=== PATIENT | male | born 1990 | race Caucasian/White ===

== ENCOUNTER 2016-10-07 09:11 | Inpatient (IN) | payer OTHER ==
[~2016-10-07] VITALS: Ht 177.8 cm; Wt 59.8 kg
--- NOTE | ~2016-10-07 | INDIVTXPL2 ---
"PATIENT: JEFFERY CARTER | | [facility] UNIT #: [id number] | [address] AGE/SEX: 26 M : [birth year] | [address] | [place] [address] ADMIT/REG DATE: 10/07/16 | ROOM: [facility] LOC: ADTC | ADTC | Individualized Treatment Plan DATE:10/24/16 Problem Statement/Issue Identified:I need to learn about relapse prevention to prevent relapse. Goal:I will lear how to prevent relapse Objectives/Activities to achieve goal: 1.I will complet the relapse prevention packet and share with my counselor what I learned. Due Date:10/31/16 Complete: Incomplete: 2.I will make a list of relapse triggers and make a relapse prevention plan and share with my counselor. Due Date:11/03/16 Complete: Incomplete: 3. I will be aware of any negative thinking or behaviors and share with my sponsor and others in the program and be open to them pointing out behaviors they see in me. Due Date:on going Complete: Incomplete: Client Signature Date Counselor Signaure: Date Outcome/Measurement of Progress Towards Goal: Counselor Signature: Date "
--- NOTE | ~2016-10-07 | INDIVTXPL2 ---
"PATIENT: JEFFERY CARTER | | [facility] UNIT #: [id number] | [address] AGE/SEX: 26 M : [birth year] | [address] | [place] [phone] ADMIT/REG DATE: 10/07/16 | ROOM: [facility] LOC: ADTC | ADTC | Individualized Treatment Plan DATE:10/15/16 Problem Statement/Issue Identified: My substance use has caused my family to worry and I have had legal problems Goal:I need to learn how to stay sober. Objectives/Activities to achieve goal: 1.I will complete the getting started packet and share with counselor and in group. Due Date:10/17/16 Complete: Incomplete: 2.I will complete step 1 and share with counselor and in group pages 10-11. Due Date:10/21/16 Complete: Incomplete: 3.I will participate in group by sharing assignments, relating and giving feedback. Due Date:11/04/16 Complete: Incomplete: Client Signature Date Counselor Signaure: Date Outcome/Measurement of Progress Towards Goal: Counselor Signature: Date "
--- NOTE | ~2016-10-07 | INDIVTXPL2 ---
"PATIENT: JEFFERY CARTER | | [facility] UNIT #: [id number] | [address] AGE/SEX: 26 M : [birth year] | [address] | [place] [address] ADMIT/REG DATE: 10/07/16 | ROOM: [facility] LOC: ADTC | ADTC | Individualized Treatment Plan DATE:10/18/16 Problem Statement/Issue Identified:I need to learn to identify negative thinking Goal:I will work on identifying my negative thinking so I can change it Objectives/Activities to achieve goal: 1.I will read the stiking thinking booklet and share what I learned with my counselor. Due Date:10/22/16 Complete: Incomplete: 2.I will share with my counselor when I fall into negative thinking or behaviors and share how I dealt with it. Due Date:11/04/16 Complete: Incomplete: Client Signature Date Counselor Signaure: Date Outcome/Measurement of Progress Towards Goal: Counselor Signature: Date "
--- NOTE | ~2016-10-07 | CLPRLASSUM ---
"PATIENT: JEFFERY CARTER | | [facility] UNIT #: [id number] | [address] AGE/SEX: 26 M : [birth year] | [address] | [place] [address] ADMIT/REG DATE: 10/07/16 | ROOM: [facility] LOC: ADTC | ADTC | Client Problem List/Assessment Summary Date: 10/15/16 Problems identified by the client: My alcohol use has caused problems with family,financial and legal. Problems identified by significant others:same Client's Strengths: good work ethics and cares about family Problem List:Code: O Client needs to become familiar with basics of recovery as he/she is new to treatment and Twelve Step Program. Code: T Client is experiencing family &/or significant other discord and distancing as a result of past alcohol &/or drug usage. Code: O Client has learned to deny or stuff feelings; needs to learn to identify and process feelings with safe people to acquire the necessary skills to maintain prison sobriety. Code Molina: T: to be addressed during course of treatment O: problem noted, expected to resolve itself with abstinence--specific tx plan not required R: problem noted, will be referred upon discharge PRIMARY COUNSELOR: Penny Strauss"
--- NOTE | ~2016-10-07 | TXPLANREV ---
"PATIENT: JEFFERY CARTER | | [facility] UNIT #: [id number] | [address] AGE/SEX: 26 M : [birth year] | [address] | [place] [phone] ADMIT/REG DATE: 10/07/16 | ROOM: [facility] LOC: ADTC | ADTC | Treatment Plan/Staffing Review Date: 10/31/16 Treatment plan was reviewed and determined appropriate as written: yes Treatment plan was reviewed and the following changes/addition/deletions are necessary: none Discharge plans were reviewed and determined appropriate as previously documented: client will do aftercare here at [facility] instead of [place] as previously planned. Discharge plans were reviewed and determined to be as follows: Client will see Parish for aftercare sessions and be in [facility] Friday night group. He will need to do 3 AA meetings a week and get a sponsor. Other pertinent issues discussed during this staffing review include:Client is doing well and is coleader. He remains possitive and is following through with all his responsibilities and assignments. Staff Present: Jil Byrd PRIMARY COUNSELOR:PARISH Cobb,L.A.DDonisCDonis Client Signature Counselor Signature Date Time "
--- NOTE | ~2016-10-07 | TXPLANREV ---
"PATIENT: JEFFERY CARTER | | [facility] UNIT #: [id number] | [address] AGE/SEX: 26 M : [birth year] | [address] | [place] [phone] ADMIT/REG DATE: 10/07/16 | ROOM: [facility] LOC: ADTC | ADTC | Treatment Plan/Staffing Review Date: 10/22/16 Treatment plan was reviewed and determined appropriate as written:will add new treatment plan Treatment plan was reviewed and the following changes/addition/deletions are necessary: will meet with client and see what he needs to work on Discharge plans were reviewed and determined appropriate as previously documented:client plans on going back home and doing his aftercare at [facility]. Discharge plans were reviewed and determined to be as follows: client will discharge 11/04/16 Other pertinent issues discussed during this staffing review include: client seems to be doing well and is opeing up more in group. His significant other had moved out and she suddenly moved back to their place so she plans on coming to family. Staff Present: Marielena Ragsdale PRIMARY COUNSELOR: PARISH Cobb,L.A.DDonisC. Client Signature Counselor Signature Date Time "
--- NOTE | ~2016-10-07 | RESCARESUM ---
"PATIENT: JEFFERY CARTER | | [facility] UNIT #: [id number] | [address] AGE/SEX: 26 M : 89 | [address] | [place] [phone] ADMIT/REG DATE: 10/07/16 | ROOM: [facility] LOC: ADTC | ADTC | Summary of Residential Care Primary Counselor: Parish BOLAND,[facility] Date of Admission: 10/07/16 Date of Discharge: 11/04/16 Referral Source: county attorney Primary Care Provider Prior to Admission:none Admitting Diagnosis: F10.20 alcohol use disorder severe Discharge Diagnosis: same Goals Achieved: Client completed the 28 day residential treatment program and assignments he completed were: how to get started, step one-three, relapse prevention, and stinking thinking. He completed family program with his foster mom and his significant other. He was put into the coleader role and did a good job with this. He appears to be serious about recovery and did a good job and seems to get along with staff and peers. Concerns are that his significant other had left him and now suddenly wants to move back in and she admits to him and this counselor that she is still smoking pot. Continued Obstacles to Sobriety/Relapse Issues:hanging out in using places,old using friends, relationship problems, using family, and issolating and not sharing feelings. Family Issues Addressed: Clients foster mom and significant other came to family. His sig. other had left him and now wants to move back in but admits to still be smoking pot. They shared feelings letters and both mom and significant other heard about ortiznon. Client also wrote feelings letters to his daughters. y Individual Therapy y Group Therapy y Educational Series on Substance Abuse y Parents/Significant Others Attended Family Program n Acute Medical Problems During the Course of Treatment n Transferred to Hospital During the Course of Treatment y Accepting of Substance Abuse Problem n non-accepting of Substance Abuse Problem n Required Psychological or Psychiatric Consultation During the Course of Treatment Completed AA Step #1-3 During This Level of Care Significant Incidences During Treatment: none Reason For Discharge: y Completed Residential TX Goals and Ready For Next Level of Care Left Tx Against Medical Advice/Treatment Goals Not Complete PATIENT: JEFFERY CARTER | | [facility] UNIT #: [id number] | [address] AGE/SEX: 26 M : [birth year] | [address] | [place] [address] ADMIT/REG DATE: 10/07/16 | ROOM: [facility] LOC: ADTC | ADTC | Summary of Residential Care Completed Residential Tx Goals But Refusing Continuing Care Recommendations Discharged Due to Noncompliance/Treatment Goals not Completed Discharged Earlier Than Planned Due to: Continuing Care Plan/Recommendations: Intensive Partial Care y Sponsor Partial Care y AA Meetings/NA Meetings y Outpatient Co-dependency Services [facility] / [facility] Marriage Counseling Other Specific Continuing Care Plan: Client will do his aftercare here at [facility]. He will attend [facility] group every Friday night and see [facility] for inidivual sessions. He will be required to attend AA/NA meetings weekly and have contact with a sponsor which he will need to get. He will be given assignments to complete. PRIMARY COUNSELOR: PARISH Cobb,L.A.D.C."
--- NOTE | ~2016-10-07 | INDIVTXPL2 ---
"PATIENT: JEFFERY CARTER | | [facility] UNIT #: [id number] | [address] AGE/SEX: 26 M : 89 | [address] | [place] [phone] ADMIT/REG DATE: 10/07/16 | ROOM: [facility] LOC: ADTC | ADTC | Individualized Treatment Plan DATE:10/24/16 Problem Statement/Issue Identified:My substance use has affected my life and my relationship with God. Goal:I will work on my relationship with God. Objectives/Activities to achieve goal: 1.I will complete step 2 and share with my counselor what I learned Due Date:11/03/16 Complete: Incomplete: 2.I will practice turning things over to God and share with my counselor and sponsor how this is going. Due Date:on going Complete: Incomplete: 3. I will work on praying more and share how this is going with counselor/sponsor. Due Date:on going Complete: Incomplete: Client Signature Date Counselor Signaure: Date Outcome/Measurement of Progress Towards Goal: Counselor Signature: Date "
--- NOTE | ~2016-10-07 | INDIVTXPL2 ---
"PATIENT: JEFFERY CARTER | | [facility] UNIT #: [id number] | [address] AGE/SEX: 26 M : [birth year] | [address] | [place] [address] ADMIT/REG DATE: 10/07/16 | ROOM: [facility] LOC: ADTC | ADTC | Individualized Treatment Plan DATE:10/24/16 Problem Statement/Issue Identified:I have struggled with dealing with my emotions Goal:I will learn how to deal with my emotions in a positive way Objectives/Activities to achieve goal: 1.I will read packet about emotions and share what I learned with my counselor Due Date:10/29/16 Complete: Incomplete: 2.I will practice sharing how I feel with counselor/sponsor and people in the program Due Date:on going Complete: Incomplete: Client Signature Date Counselor Signaure: Date Outcome/Measurement of Progress Towards Goal: Counselor Signature: Date "
--- NOTE | ~2016-10-07 | INDIVTXPL2 ---
"PATIENT: JEFFERY CARTER | | [facility] UNIT #: [id number] | [address] AGE/SEX: 26 M : 89 | [address] | [place] [phone] ADMIT/REG DATE: 10/07/16 | ROOM: [facility] LOC: ADTC | ADTC | Individualized Treatment Plan DATE:10/17/16 Problem Statement/Issue Identified:My substance use has affected my family relationships. Goal:I need to learn how to improve my family relationships Objectives/Activities to achieve goal: 1.I will attend family education/group with my mother and share what I learned with my counselor. Due Date:by 11/04/16 Complete: Incomplete: 2.I will write feelings letters as assigned and share them with my counselor before reading them to family. Due Date:by 11/04/16 Complete: Incomplete: 3. I will write a vent letter to my bio mom and read to counselor and/or in group to process my feelings. Due Date:10/22/16 Complete: Incomplete: Client Signature Date Counselor Signaure: Date Outcome/Measurement of Progress Towards Goal: Counselor Signature: Date "
--- NOTE | 2016-10-07 13:16 | NUR ---
ADMISSION NOTE Rights/Responsibilities: Copy given and explained to client. Signed and accepted by client. Client oriented to physical lay out of the ADTC unit, given Big Book and admission packet. A Zia was assigned. Alexander Bradley Client is a 26yr old single male. Brought to tx by [facility] staff where he has been for the past 7 days. Lives in [place], [place]. DOC, alcohol, last used 09/27/16, 6 pack daily. No allergies, no meds. Was searched no contraband found. Mother will participate in tx. Initial paperwork given and guidelines gone over. Doctor has been notified.
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
--- NOTE | 2016-10-07 16:00 | NUR ---
Recovery 101 1 hr/ Clients all were asked to share what they worked on in treatment or past treatments that really helped them and/or their experience with working an AA/NA program of recovery-what went well. This client was attentive.
--- NOTE | 2016-10-07 18:11 | NUR ---
Education: 1 Hour. Client attended "Adult Children of Alcoholics" lecture presented by staff.
--- NOTE | 2016-10-07 23:28 | NUR ---
tech note: Client played a game for recreation & attended onsite NA meeting. Client was checked into his room-not seen by the DR. Client gave his first intro. SE: Coming to treatment.
--- NOTE | 2016-10-08 04:32 | NUR ---
BED NOTE: Client was in bed, motionless with eyes closed all three bed checks.
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
--- NOTE | 2016-10-08 16:00 | NUR ---
Relapse Prevention, 1.0 hours, Client attended and actively participated in relapse prevention education which focused on internal and external triggers.
--- NOTE | 2016-10-08 16:36 | NUR ---
Tech Note: Client participated in Nutritional Services presentation and is working on Getting Started and the Big Book.
--- NOTE | 2016-10-08 22:42 | NUR ---
Education: 1 hour lecture given by counselor on co-dependency
--- NOTE | 2016-10-08 22:52 | NUR ---
Tech note: clients played catchphrase for rec, participated in guided meditation and attended AA meeting SE:AA
--- NOTE | 2016-10-09 04:37 | NUR ---
bed note: client was in bed with eyes closed and motionless at all bed checks.
--- NOTE | 2016-10-09 09:53 | NUR ---
Tech notes: Client is working on BB
--- NOTE | 2016-10-09 11:30 | NUR ---
GROUP 1.5 HRS. 1:12 Clients participated in orienting new peer to purpose and rules of group. Discussion included healthy coping skills to deal with stress and feelings. Peer processed from his step 1 assignment identifying how he betrayed his values in his addiction. This client was mostly quiet but appeared attentive.
--- NOTE | 2016-10-09 13:14 | NUR ---
Education note: Client attended educational speaker David Breaux
--- NOTE | 2016-10-09 15:43 | NUR ---
Family contact/ Clients foster mom called and said she had contacted the court and he does not have to go to court while in treatment. I told her we had been in contact with court also. She wants him to know she called and loves him. I told her I would be in touch after client gets going more in treatment.
--- NOTE | 2016-10-09 17:33 | NUR ---
SPIRITUAL EDUCATION 1 HR. Today we used music to invoke discussion, symbolize how it can be either positive spirituality or negative spirituality, and discussed the feelings. We used one song that depicted addiction, one that talked about recovery, and since we are close to Mother's Day, one that depicted addiction in parents and forgiveness.
--- NOTE | 2016-10-09 18:17 | NUR ---
Education: 1 Hour. Client attended "Boudaries" lecture given by staff.
--- NOTE | 2016-10-09 22:54 | NUR ---
Tech Note: Client played a game for rec, and attended The on unit N.A.Meeting. SE: All Day
--- NOTE | 2016-10-10 04:29 | NUR ---
Bed Note: Client was in bed with eyes closed and motionless at all bed checks.
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
--- NOTE | 2016-10-10 13:11 | NUR ---
FAMILY CONTACT/ discussed family and foster mom will come to family saturday 10/14 and 10/24.
--- NOTE | 2016-10-10 15:56 | NUR ---
step education 1 hr/ Focus was on step 3 of the 12 steps Made a decision to turn our will and lives over to God. Each person were given questions to answer on paper and then to share and discuss. This client participated.
--- NOTE | 2016-10-10 18:16 | NUR ---
Education 1HR: Clt watched video called "Predator part 1" by Selvin Pete with staff present.
--- NOTE | 2016-10-10 23:07 | NUR ---
Tech Note: Client took a walk for rec and attended the A.A.Meeting. SE: Group
--- NOTE | 2016-10-10 23:23 | NUR ---
1:00 pm. Education Note: Client watched video "Inside the Addictive Personality"
--- NOTE | 2016-10-11 04:07 | NUR ---
Bed Note: Client was in bed and motionless at all bed checks.
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
--- NOTE | 2016-10-11 14:40 | NUR ---
PEER REVIEWS 1.5 HRS: Clt participated in peer review process and was able to give open and honest feedback to those receiving a review.
--- NOTE | 2016-10-11 15:40 | NUR ---
Tech Note: Client participated in group walk and watched "Marijuana" by Selvin Pete. Assignment being worked on is Step 1.
--- NOTE | 2016-10-11 23:20 | NUR ---
Tech note: Client played games and watched movies. Client walked to an offsite AA meeting.
--- NOTE | 2016-10-12 04:01 | NUR ---
Bed note: Client was in bed with eyes closed and no distress at all bed checks
--- NOTE | 2016-10-12 16:49 | NUR ---
Tech Note: Client went to A.A.Meeting at [address]. Client also went on a walk. Client is working on Step one
--- NOTE | 2016-10-12 22:04 | NUR ---
Tech note: Client's were just starting to grill around 6pm so we did not have rec this evening. Client walked to an offsite AA meeting, played games and watched movies. SE; Morning meeting
--- NOTE | 2016-10-13 04:45 | NUR ---
tech note: client was motionless in no distress at all bed checks.
--- NOTE | 2016-10-13 17:32 | NUR ---
Tech Note: Client participated in Big Book study. Client attended confucianism. Client stated that he is working on Step One.
--- NOTE | 2016-10-13 23:25 | NUR ---
tech note: Client participated in community clean. Client watched tv. SE: having steaks for supper.
--- NOTE | 2016-10-14 04:24 | NUR ---
tech note: client was motionless in no distress at all bed checks.
--- NOTE | 2016-10-14 13:36 | NUR ---
Experiential Group 1.5 hr/ Clients all participated in looking at family dynamics and feelings through sculpturing and participated with feedback, relating and/or role-playing. This client was attentive.
--- NOTE | 2016-10-14 17:00 | NUR ---
FAMILY EDUCATION 3 HRS. Client was accompanied by his mom, who later clarified that she is not client's bio mom and met client when he was about 14. They took part in the discussion on the family roles, codependency and detachment. Client related to both scapegoat and mascot roles.
--- NOTE | 2016-10-14 17:47 | NUR ---
Tech Note: Client went for an outdoor walk in the afternoon. Client stated that he is working on Step One and writing feelings letters.
--- NOTE | 2016-10-14 20:47 | NUR ---
Education 1 HR: Clt listened to lecture given by counselor on communication.
--- NOTE | 2016-10-14 21:00 | NUR ---
FAMILY GROUP 5:1// HR: Client, peers and attending family members heard FEELINGS LETTERS processed by one family. These letters and the subject matter, their daughter's and the resulting chain of events led to much personal sharing. Several members in the group realized that they had known the young woman and related their personal experiences with her and the lives she had touched during her brief life. The couple seemed to be both touched and comforted. This client attended with his mother (adoptive?). Both were attentive but only mom shared on a personal level stating that she still struggles with her dad's which occurred over 5+ years ago. She indicated that he, too, of cancer and it was a long and painful departure. Client was prompted to relate if he could. He shared that he was basically raised by his grandparents, but explained that his grandfather has since passed. Client was pretty insistant that he has already dealt with his grief by binging on alcohol for months. Client heard that his use of chemicals actually blocks the grieving process, but he would have none of that. They were encouraged to prepare FEELINGS LETTERS to share next week.
--- NOTE | 2016-10-14 23:08 | NUR ---
Client was in Family SE: Family
--- NOTE | 2016-10-15 04:57 | NUR ---
Bed Note: Client was in bed and motionless at all bed checks
--- NOTE | 2016-10-15 12:21 | NUR ---
A.M. 1.5 hr group/ Assignments shared were step 1, feelings letters, timeline to music, and a group member asking for help on how to forgive self. This client was attentive and participated. He was asked how family went last night and said ok and peers prodded him to share more. He told the group his bio mom lives in grandparents basement and he was raised by grandparents until age 11 and then he went to foster home where he was raised until adult. Foster mom is who he calls mom now and who came to family. He said his bio mom has problems and is basically "as dumb as a box of rocks." A peer told him he was being disrespectful and said he needs to not talk about his mom this way. He said he realizes this and he does love her. I suggested he write a vent letter to mom as he seems to have some unresolved anger towards mom. He agreed to do this but said he wonders what he can write.
--- NOTE | 2016-10-15 15:12 | NUR ---
Tech Note: Client joined group for afternoon walk, listened to speaker from the [facility] and is working on Feelings Letters and Step 1.
--- NOTE | 2016-10-15 15:34 | NUR ---
IS 1 hr/ Typed treatment plan and client signed and got a copy. Family went well and he sees he has been a real jerk to his foster mom. She bought him his house, bought him other things and has helped him through all his problems. He will work on feelings letters to her and his kids. He will write vent letter to his bio mom and ex. He feels he has worked through grief over loss of grandpa so will not assign anything on that for now. For aftercare he wants to go back home and do outpatient in [place]. He needs new tires but thinks his uncle will help him with that. His home is in [place]. He has 3 dogs and does not want to go to a sober living place. next apt is 10/17
--- NOTE | 2016-10-15 16:04 | NUR ---
Tech Note: Client attended Relapse Prevention education with Jil.
--- NOTE | 2016-10-15 19:55 | NUR ---
Education: 1 hour lecture on STD/AID/HIV gilorie by [facility].
--- NOTE | 2016-10-15 22:34 | NUR ---
Tech note : Client worked on Styloola crafts and get well cards. Client participated in guided meditation and went to an onsite AA meeting.
--- NOTE | 2016-10-16 04:15 | NUR ---
Bed note: Client was in bed with eyes closed and no distress at all bed checks
--- NOTE | 2016-10-16 11:13 | NUR ---
Tech Note: Client is working on Step 1, Feelings Letters and a Vent Letter.
--- NOTE | 2016-10-16 12:10 | NUR ---
AM GROUP 13:1/1.5 HR: Client and peers heard multiple clients process assignments and issues. Most did offer feedback, asked clarifying questions and shared from their own experiences. This client sat quietly, but appeared attentive.
--- NOTE | 2016-10-16 13:18 | NUR ---
Tech Note: Client walked in the hallways for afternoon exercise.
--- NOTE | 2016-10-16 13:23 | NUR ---
Education One Hour: Client heard from members of the recovery community, who shared their experience, strength and hope.
--- NOTE | 2016-10-16 17:27 | NUR ---
SPIRITUAL EDUCATION 1 HR. Topics today were orienting newcomers and then broke into groups and did presentations on their sections from TOWARDS SPIRITUALITY.
--- NOTE | 2016-10-16 18:46 | NUR ---
Education: 1 hour lecture given by counselor on "Disease concept".
--- NOTE | 2016-10-16 22:27 | NUR ---
Tech note: Client played catch phrase for rec and attended an onsite NA meeting. SE: rec
--- NOTE | 2016-10-17 05:00 | NUR ---
Bed note: Client was in bed with eyes closed and no distress at all bed checks.
--- NOTE | 2016-10-17 10:44 | NUR ---
Tech Note; Client participated in light stretching for morning exercise. Client stated that he is working on writing feelings letters.
--- NOTE | 2016-10-17 12:38 | NUR ---
Group 1.5 Hr Ratio 1:11/Topics today were feelings letters, a good bye letter to addiction and a couple getting started packets. Client shared feedback in group but was mostly quiet.
--- NOTE | 2016-10-17 16:07 | NUR ---
Step Education 1 hr/Focus was on step 4 making a searching and fearless moral inventory of ourselves. Handed out some questions each person answered on paper and then we discussed. This person participated.
--- NOTE | 2016-10-17 16:20 | NUR ---
Education 1 Hour: Client heard from two members of the recovery community, who shared their experience strength and hope.
--- NOTE | 2016-10-17 18:09 | NUR ---
Tech Note: Client received a visit from his two pastors.
--- NOTE | 2016-10-17 18:16 | NUR ---
IS 1 hr/ Client went over the rest of his how to get started and his step one and did a good job. We talked about relapse prevention and the importants of having a plan. He admits that everything he did included drinking. He feels he has to go home cause he has 3 dogs but he knows he will have some problems waiting for him too. He plans on attending meetings but there are none in his town. He will write feelings letters to his kids, foster mom, and vent letters to mom and ex. also gave him stinking thinking. next apt is 10/22 at 2pm.
--- NOTE | 2016-10-17 20:24 | NUR ---
Education: 1 Hour. Client attended Alexander Fuentes "Unhealthy Families" video.
--- NOTE | 2016-10-17 22:58 | NUR ---
Client went on a walk for rec, participated in guided meditation, and attended the on unit A.A.Meeting. SE: Visit with Sheet Tailer
--- NOTE | 2016-10-18 05:35 | NUR ---
tech note: client was motionless in no distress at all bed checks.
--- NOTE | 2016-10-18 11:43 | NUR ---
Group 1.5 Hr Ratio 1:11/Topics today were two Getting started packets, feelings letters and a letter to self. 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
--- NOTE | 2016-10-18 14:46 | NUR ---
Tech Note: Client joined our group walk for exercise. Watched video titled "Sound of Silence" and is working on Trinity Thinkin, Feelings Letters and a Vent Letter.
--- NOTE | 2016-10-18 15:39 | NUR ---
PEER REVIEWS 1.25 HRS: Clt participated in peer reviews and took a risk to give open and honest feedback to those receiving a review.
--- NOTE | 2016-10-18 20:30 | NUR ---
TECH NOTE: Client participated in reading of guidelines, watched TV/movies SE: group
--- NOTE | 2016-10-19 04:31 | NUR ---
BED NOTE: Client was in bed, motionless with eyes closed all bed checks.
--- NOTE | 2016-10-19 16:18 | NUR ---
Tech Note: Client is working on Feelings Letters and Stinkin Thinkin.
--- NOTE | 2016-10-19 20:22 | NUR ---
Tech note: Clt played a game for recreation and attended offsite AA mtg. Clt played cards, watched movies and used phone. SE was nap
--- NOTE | 2016-10-20 04:25 | NUR ---
BED NOTE: Client was in bed motionless with eyes closed all three bed checks.
--- NOTE | 2016-10-20 15:48 | NUR ---
Tech Note: Client participated in Big Book study. Client stated that he is working on writing feelings letters. Client received a visitor.
--- NOTE | 2016-10-20 23:02 | NUR ---
Tech Note: Client attended the A.A.Panel with Satish Fernandez SE: Visitation
--- NOTE | 2016-10-21 04:37 | NUR ---
Bed Note: Client was laying in bed and motionless at all bed checks.
--- NOTE | 2016-10-21 07:51 | HP ---
ADMIT: 10/07/2016 RM/LOC: [facility] MR#: [id number] [address] [facility] [address] [place], [place] [id number] JEFFERY CARTER [address] [place] [address] History and Physical SEX: M AGE: 26 : 1990 DATE OF SERVICE: CHIEF COMPLAINT: Alcohol dependency. HISTORY OF PRESENT ILLNESS: Jeffery is a 26-year-old, single, white male, admitted to residential level treatment at [place] on September 2016. He presents to treatment after his recent second DUI. He states he tried to quit drinking. He took one drink and relapsed and subsequently checked himself into treatment for detox. He was admitted to [facility] in the end of August 2016 and detoxed prior to being referred to residential level treatment on October 07, 2016. Jeffery's drug of choice on admission is alcohol. He first started drinking about 6 years of age when his maternal grandfather gave him a drink of beer. He states in grade school in [employer], he rarely drank. By his [employer] of high school, he was drinking 5 or more drinks to intoxication, 5 to 7 nights a week. Heaviest drinking was 2006 to around 2010. States at that time, he was drinking 30 pack or more daily. He states the last 4 to 5 years, he has been drinking only a 6 pack a day during the week, and a 12 pack or more on weekends. His last drink was August 27, 2016. He admits to a [facility] when he was young, couple DUIs, and has had other legal problems including leaving the scene arrest and theft. He denies any history of alcohol withdrawal seizures, DTs, or hallucinations. Second drug of choice is denied. He admits to using marijuana 5 to 10 times in high school. PAST MEDICAL HISTORY: Operations include 2 surgeries on the right hand from a fracture. ILLNESSES: None. MEDICATIONS: None. ALLERGIES: NONE KNOWN. SOCIAL HISTORY: Is that of a 26-year-old, single, white male. 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 Has 2 children with an ex-girlfriend. He smokes a pack of cigarettes daily and chews a can a day of chewing tobacco. FAMILY HISTORY: A stroke in his maternal grandmother. He states 90% of his relatives drink when they have family gatherings, but no one else has an alcohol use disorder to the best of his knowledge. REVIEW OF SYSTEMS: Negative. PHYSICAL EXAMINATION: VITAL SIGNS: He is 5 feet 10 inches with a weight of 59.8 kg. Blood pressure 110/71, pulse 94 with a temperature of 95.8. GENERAL APPEARANCE: Is that of a 26-year-old male, who is alert and oriented, ADMIT: 10/07/2016 RM/LOC: [facility] MR#: [id number] [facility] [address] [address] JEFFERY CARTER [address] [place] [address] History and Physical SEX: M AGE: 26 : 1990 in no acute distress. HEENT: Pupils are reactive. TMs normal. Throat normal. NECK: Normal. HEART: Regular without murmur. LUNGS: Clear. ABDOMEN: Soft, nontender, and benign. AND RECTAL: Deferred. EXTREMITIES: Reveal no clubbing, cyanosis, or edema. NEUROLOGIC: Normal including light touch, strength, and DTRs. LABORATORY DATA: Labs done at [facility] on September 29 include a CBC, chemistry profile, and UA and they were all normal. ASSESSMENT: 1. Alcohol use disorder, severe. 2. Tobacco use disorder. PLAN: He was started on multivitamin and thiamine. We will proceed with drug and alcohol abuse dependency treatment and counseling. Further evaluation and management based on his course during hospitalization. Please see his hospital record for the details. Ricardo Mcneal MD/ cody JOB #: [id number] CC: Ricardo Mcneal, Attending Physician FAMILY PHYSICIAN, Family Physician
--- NOTE | 2016-10-21 09:44 | NUR ---
Tech note: Client is working on Vent Trinity de la garza, Jersons.
--- NOTE | 2016-10-21 11:30 | NUR ---
PEER REVIEW 1.5 hr/ Clients had 4 peer reviews and this client gave good feedback.
--- NOTE | 2016-10-21 12:55 | NUR ---
Education Note: Clients attended speaker for education Kit J.
--- NOTE | 2016-10-21 16:00 | NUR ---
RECOVERY 101 1 hr/ Clients discussed what they are learning from attending the 12 step recovery meetings about fundamentals of recovery, how to work a program such as: get and use a sponsor, work the steps, read C.A.L., HOW/honesty, openminded &willing, service work, HP/spirituality, opening up, slogans, serenity prayer, home group/meetings, etc. Clients shared and got into story telling at times. They learned 15% is addiction and 85% is the living problem so this is why keep going to meetings and working the program is vital.
--- NOTE | 2016-10-21 18:19 | NUR ---
Education: 1 Hour. Client attended "Feelings" lecture presented by staff.
--- NOTE | 2016-10-21 21:00 | NUR ---
FAMILY GROUP 8:1/ HR: Client, attending family members and peers heard several peers and their loved ons process FEELINGS LETTERS. Much of the focus was on the drastic changes that take place in the individual's personality when they injest chemicals. Much of the emphasis became the need to rebuild trust which will take time. This client attended with his "mother" who took him in to foster care as a teenager and is still in his life. Though client did better with his FEELINGS LETTER than expected, he and his mother kept laughing through out the process. Mom admitted that "we've been through a lot together and usually just laugh it off." Staff suggested that not dealing with feelings is a sure relapse trigger, but not sure that it made much of an impact. Mom couldn't identify her feelings either. When asked, she did say that she is thinking she should try Alanon. She was encouraged to do so.
--- NOTE | 2016-10-21 23:12 | NUR ---
tech note: client attended Family Session. SE: Family.
--- NOTE | 2016-10-22 04:46 | NUR ---
tech note: client was motionless in no distress at all bed checks.
--- NOTE | 2016-10-22 12:58 | NUR ---
GROUP 1.5 HRS. 1:11 Group discussion included cravings and grief of old lifestyle as well as feelings letters/effects on kids and betraying values. This client shared pg. 10 of his step 1 assignment identifying his values and how he betrayed them. He had repeated examples of wealth, money and not paying bills. Client shared that his nailer operator came to visit him even though he has not been attending protestant in the last several years. Client was confronted as he took time to write down bible verse and pass it to peer.
--- NOTE | 2016-10-22 14:48 | NUR ---
IS 1 hr/ Client read a vent letter to bio mom and said he started feeling mad half way through and he could see how his writing changed. He feels he has dealt with most of it. His mom has a mental capacity of a 13 yr old. He also read letter to sig. other. I told him I do have concerns of how she left suddenly to be with a man and now all of a sudden she is moving back. He said he told her he will not go through this again and if she leaves thats it. Talked about him setting boundaries with foster mom also and how when he gets more responsible she will not have a need to help him so much. He will read learning to live with emotions as he tends to keep to himself and not want to feel feelings and a relapse prevention and step 2. next apt is with foster mom and him on 10/24 at 1pm.
--- NOTE | 2016-10-22 15:49 | NUR ---
Relapse Prevention, 1.0 hours, Client attended and actively participated in relapse prevention education which focused on compulsive behaviors and relapse.
--- NOTE | 2016-10-22 16:08 | NUR ---
Tech Note: Client watched Part 2 of Predator by Selvin Pete and had Relapse Prevention for 3:00 education. Assignment being worked on: Big Book.
--- NOTE | 2016-10-22 16:23 | NUR ---
Education Note: Client attended Relapse Prevention presented by counselor Aishwarya.
--- NOTE | 2016-10-22 20:17 | NUR ---
Education: 1 hour lecture given by counselor on relapse.
--- NOTE | 2016-10-22 20:26 | NUR ---
tech note: Client went for walk for rec, participated in guided meditation and attended AA meeting
--- NOTE | 2016-10-22 23:35 | NUR ---
Tech Note: Client went on a walk for rec and attended the on unit A.A.Meeting. Client participated in Guided Meditation at 1930. SE: Walk
--- NOTE | 2016-10-23 04:55 | NUR ---
Bed note: client was in bed with eyes closed and no distress at all bed checks.
--- NOTE | 2016-10-23 10:19 | NUR ---
Tech notes: Client is working on Relapse prevention and Step 2
--- NOTE | 2016-10-23 11:30 | NUR ---
BIG GROUP 4:21 Group was brought together to discuss issues of old behaviors, treatment relationships and other violations of guidlines that are being kept secret. All were encouraged to look at the difficulty they have confronting with assertiveness, rather than passive/aggressive.
--- NOTE | 2016-10-23 13:47 | NUR ---
Educational note: Client watched a video for education.
--- NOTE | 2016-10-23 17:19 | NUR ---
SPIRITUaL EDUCATION 1 HR. Clients were oriented to the group and learned difference between spirituality and jehovah's witness. We addressed GRATITUDE today with discussion, worksheet and activity.
--- NOTE | 2016-10-23 18:23 | NUR ---
Education: 1 Hour. Client attended "Self Esteem" lecture presented by staff.
--- NOTE | 2016-10-23 23:18 | NUR ---
tech note: client went on a walk for recreation & attended the onsite NA meeting. Client was redirected several times by tech for his language,he said that he is trying to work on it. SE: Walk.
--- NOTE | 2016-10-24 05:10 | NUR ---
Bed Note: Clt lay motionless in bed with eyes closed showing no distress at all bed checks.
--- NOTE | 2016-10-24 11:12 | NUR ---
Tech Note: Client participated in Spiritual Enrichment. Client stated that he is working on Step Two and, "Relapse Prevention."
--- NOTE | 2016-10-24 11:35 | NUR ---
Group 1.5 Hr Ratio 1:10/Topics today were two step ones, two Gettings started packets andtwo feelings letters. Client shared his step one anddid a good job looking at how he compromised his values and hurt others. Received good feedback.
--- NOTE | 2016-10-24 13:50 | NUR ---
IS 1 hr/Client read feelings letter to his daughters and cried. He said he has not done things with them as much as he should have. We talked about his life after leaving here and they may need to find a physical education professor as his sig. 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 He will most likely keep his old job until he can find another but this takes him out of town 5 days a week. He signed tx plans. He has a strong gene in god so has been praying a lot. He will work on relapse prevention, step 2 and read packet on emotions. next apt is 10/29 at 2pm
--- NOTE | 2016-10-24 16:53 | NUR ---
FAMILY EDUCATION 3 HRS. Client was accompanied by his mom. They took part in the discussion on the disease concept. Client shared consequences of his addiction.
--- NOTE | 2016-10-24 19:15 | NUR ---
Education 1 Hour: Client heard a presentation on marijuana.
--- NOTE | 2016-10-24 22:10 | NUR ---
Education 1 HR: Clt watched video by Alfredo "Lora Bertrand" with staff present.
--- NOTE | 2016-10-24 22:33 | NUR ---
Tech Note: Clt walked for recreation, attended GM and onsite AA mtg. SE was counseling mtg
--- NOTE | 2016-10-25 04:45 | NUR ---
Bed Note: Clt lay motionless in bed with eyes closed showing no distress at all bed checks.
--- NOTE | 2016-10-25 11:30 | NUR ---
GROUP 1.5 HRS. 1:11 Group discussion included step 1 assignment to identify how betrayed values (pg. 10) and effects on others (pg. 11). This client shared feelings letters to his girlfriend but did not include any examples of her behavior or his aftercare plan commitment. This client was confronted on having chew in his mouth in the building during programming. Peers noted that client is co-leader and not following rules.
--- NOTE | 2016-10-25 15:59 | NUR ---
PEER REVIEWS 1.25 HRS: Clt participated in peer reviews and took a risk to give open and honest feedback to those receiving a review.
--- NOTE | 2016-10-25 16:14 | NUR ---
Tech Note: Client listened to speaker Robert Bradley and is working on Step 2 and Relapse Prevention.
--- NOTE | 2016-10-25 20:53 | NUR ---
Tech note: client watched TV and movies. Walked to optional offiste AA meeting. SE:all day
--- NOTE | 2016-10-26 04:58 | NUR ---
Bed note: Client was in bed with eyes closed and no distress at all bed checks.
--- NOTE | 2016-10-26 16:50 | NUR ---
Tech Note: Client attended the A.A.Meeting at [address] [place] [address] and is working on Living with Emotions.
--- NOTE | 2016-10-26 22:50 | NUR ---
Tech note: Client walked around the park a few times for rec. Client walked to an off site AA meeting. SE: All day
--- NOTE | 2016-10-27 05:01 | NUR ---
Bed note: client was in bed with eyes closed and no distress at all bed checks.
--- NOTE | 2016-10-27 15:30 | NUR ---
TECH NOTE: Client participated in big book study, attended muslim, completed chores and watched tv/movies. Went for walk, had visitors
--- NOTE | 2016-10-27 23:25 | NUR ---
tech note: Client participated in Community Clean. Client watched tv. SE: visits.
--- NOTE | 2016-10-28 04:45 | NUR ---
Bed note: client was in bed with eyes closed and no distress at all bed checks-.y
--- NOTE | 2016-10-28 15:16 | NUR ---
Tech note: Client is working on BB
--- NOTE | 2016-10-28 22:56 | NUR ---
Tech Note: Clt walked for recreation and attended onsite NA mtg. Clt played game and watched tv. SE was NA
--- NOTE | 2016-10-29 04:44 | NUR ---
Bed Note: Clt lay motionless in bed with eyes closed showing no distress at all bed checks.
--- NOTE | 2016-10-29 14:53 | NUR ---
IS 1 hr/ Client went over his relapse prevention and shared relapse triggers and a plan. He also read feelings letter he wrote to sigDonis other. He had shared it in group and got feedback and made changes. We discussed his aftercare and he was going to go to [place] since it is closer to his home but has decided to come here. Gave him my change plan to work on and packets to read on communication skills and the relapse and recovery grid. next apt is 10/31 at 1pm.
--- NOTE | 2016-10-29 15:36 | NUR ---
Tech Note: Client participated in light stretching for morning exercise and went on an outdoor walk in the afternoon. Client stated that he is working on reading the Big Book.
--- NOTE | 2016-10-29 15:37 | NUR ---
1.5 hr res group/ratio 1:9/ Group heard a step one, a letter to addiction, and discussed the importants of keeping a balance of not doing to many nice things for others verses taking care of self. This client shared his letter to addiction. He also shared he heard his mom say she ordered some pills that are to help people with addiction such as her hoarding. It got him to thinking maybe he could take them and control drinking. He talked to peers and shared today and realizes this is a crazy thought but sees how his addiction is alive and working on him.
--- NOTE | 2016-10-29 15:47 | NUR ---
Education 1 Hour: Client watched the video, "How to Sabotage your Treatment."
--- NOTE | 2016-10-29 23:00 | NUR ---
Tech note: Client walked a mile for rec, did guided meditation and attended an onsite AA meeting. SE; 30 days
--- NOTE | 2016-10-30 04:22 | NUR ---
Education: 1 Hour. Client attended presentation by staff on "Step 1."
--- NOTE | 2016-10-30 05:14 | NUR ---
Bed note: Client was in bed with eyes closed and in no apparent distress at all bed checks.
--- NOTE | 2016-10-30 09:40 | NUR ---
Tech notes: Client is working on Change plan
--- NOTE | 2016-10-30 12:01 | NUR ---
AM GROUP 9:06/02.5 HR: Client and peers ORIENTED A NEW MEMBER TO GROUP PURPOSE, GUIDELINES, GOALS AND OBJECTIVES. Client remained attentive but did not relate until a male talked about how his parents have enabled him over the years. Client said his mom has bought him another pickup since he has been in treatment.
--- NOTE | 2016-10-30 13:30 | NUR ---
Education note: Client attend educational speaker Luiza Boswell
--- NOTE | 2016-10-30 16:30 | NUR ---
SPIRITUAL EDUCATION 1 HR. Newcomers were oriented to group. Todays topic was addicted self vs spiritual self which we discussed first then they depicted the contrast in artwork. The ones that finished first wrote letters to welcome anonymous newcomers.
--- NOTE | 2016-10-30 22:28 | NUR ---
Tech note : Client played catch phrase for rec and attended an onsite NA meeting. SE; Bed
--- NOTE | 2016-10-31 04:42 | NUR ---
Bed note: client was in bed with eyes closed and no distress at all bed checks.
--- NOTE | 2016-10-31 10:47 | NUR ---
Tech Note : Client participated in Spiritual Enrichment. Client followed programming.
--- NOTE | 2016-10-31 11:30 | NUR ---
AM GRP 1.5 HRS, Ratio 1:10/ Clt participated in grp discussion on various topics, including relationships, with PO's, counselors, s/o's and kids. He stated he is going home to his "fiance" and they are planning to do counseling, go to meetings, and work on their relationship while staying clean. He plans to not drink, get a sponsor, and go to meetings. SHe plans to not smoke weed, do counseling and work on not cheating and being honest, according to clt.
--- NOTE | 2016-10-31 13:10 | NUR ---
Education 1 Hour: Client heard a recovery speaker who addressed the subject of hope.
--- NOTE | 2016-10-31 13:20 | NUR ---
IS 1 hr/ Client is still working on his change plan assignment and some booklets to read. He discharges on Friday after family and his sig other will come. He has decided to do his aftercare here with me and we are checking with Buddy to see if he has a spot in his o.p. group. He has done well and he is now coleader here. We did the continuing plan and will give him madallion on Friday. Next apt is 11/04 at 4pm.
--- NOTE | 2016-10-31 17:00 | NUR ---
FAMILY EDUCATION 3 HRS. Client was accompanied by his S/O. They took part in the discussion on the disease concept. Client shared his drinking history and when S/O was asked effects on her, she began sharing some of her own drinking history. When asked if she thought she also had a problem with alcohol, she denies while client shakes his head that yes she does.
--- NOTE | 2016-10-31 20:35 | NUR ---
Education: 1 Hour. Client attended Rocky Moore video "Step 5."
--- NOTE | 2016-10-31 22:57 | NUR ---
Client went on a walk for rec, participated in guided meditation, and attended the on unit A.A.Meeting. SE: All Day
--- NOTE | 2016-11-01 05:29 | NUR ---
Bed Note: Client was in bed and motionless at all bed checks.
--- NOTE | 2016-11-01 12:48 | NUR ---
Group 1.5 Hr Ratio 06/11/Topics today were two Getting Started Packets, talking about when it was discovered when they knew they were addicted and relationships. Client shared how he has struggled in his relationship andthat he needs to focus on his part in the troubled relationship and not just focus n what she needs to be doing different.
--- NOTE | 2016-11-01 13:00 | NUR ---
PEER REVIEWS 1.5 HRS: Clt participated in peer review process and received his own. He heard he has problems w/ honesty, needs to get honest w/ himself and others, minimizes, is in denial, doesn't take constructive criticism well, is stubborn, has expectations, covers his feelings w/ laughter, is defensive, isn't open-minded, overanalyzes. He felt sad and ashamed.
--- NOTE | 2016-11-01 14:25 | NUR ---
Tech Note: Client watched Recovery Issues Part 3. Is working on his Change Plan.
--- NOTE | 2016-11-01 20:11 | NUR ---
Tech note: Clt read guidelines as a grp, attended optional AA mtg and watched tv/movies. SE was last guidelines
--- NOTE | 2016-11-02 05:19 | NUR ---
BED NOTE: Client was in bed, motionless with eyes closed all bed checks.
--- NOTE | 2016-11-02 16:48 | NUR ---
Tech Note: Client attended NA Panel today and is working on his Change Plan.
--- NOTE | 2016-11-02 20:12 | NUR ---
TECH NOTE: Client participated in beads for REC, attended offsite AA meeting and watched TV/Movies. SE: all day
--- NOTE | 2016-11-03 04:55 | NUR ---
Bed Note: Clt lay motionless in bed with eyes closed showing no distress at all bed checks.
--- NOTE | 2016-11-03 16:08 | NUR ---
Tech Note: Client is working on his Change Plan. He joined group on optional walk and had visitors.
--- NOTE | 2016-11-03 22:53 | NUR ---
Tech Note: Client attended the on unit A.A.Panel. SE: Packing Bags tonight for home.
--- NOTE | 2016-11-04 04:40 | NUR ---
Client was in bed and motionless at all bed checks.
--- NOTE | 2016-11-04 09:55 | NUR ---
Serina notes: Client is working on Change plan and mtg with francis
--- NOTE | 2016-11-04 13:35 | NUR ---
Education note: Client attended educational speaker Linda on Tobacco
--- NOTE | 2016-11-04 14:01 | NUR ---
PEER REVIEWS/Morning Group 1.50 HRS: Clt participated in peer reviews and took a risk to give open and honest feedback to those receiving a review. Client shared that he is not sure how to have fun without drinknig but is going to learn how to.
--- NOTE | 2016-11-04 17:00 | NUR ---
FAMILY EDUCATION 3 hrs. Client was accompanied by S/O. They took part in the discussion on the family roles, codependency and detachment.
--- NOTE | 2016-11-04 18:00 | NUR ---
FAMILY SESSION 1 HR/ Clients significant other joined session. They had done the afternoon family and asked if they could go home after our session cause they have a [address] Client was down as he said he is tired of being lied to. She admits she continues to smoke pot and he was ready to move her back in with him but now is having second thoughts. I talked to her about getting an evaluation or going to detox. She said she really does not want to quit. They had made an agreement that they would both quit, him alcohol and her pot and if either one started using again the other one would get the kids. She has the kids with her now. She takes college classes in [place] and gets $1000 a month for [email or web address]. She seems very immature and younger than 23 yrs old as she stated she was. I told them they need to stay for all of family even though he did it with his foster mom already she also needs it. I gave client his madallion and said he has done good. He shared he got a peer review but only thoiught part of it was correct. A peer said he did not know what to say so just through some things out there. Client will return for [facility] next week and with me friday at 4pm. I told sig. other she can come to more family sessions when he comes. I told her also about pavel.
--- NOTE | 2016-11-04 18:16 | NUR ---
EDUCATION 1 HR: Counselor gave lecture on forgiveness.
--- NOTE | 2016-11-04 21:00 | NUR ---
FAMILY GROUP 5:06/03 HR: Client, peers and attending family members heard two families process FEELINGS LETTERS. Much of the focus tonight was on willingness to followthrough with what they are learning in treatment, i.e. sponsorship, meetings, communication, dealing with feelings, etc. This client attended with his . Client's wept throughout his sharing which appeared surprisingly sincere. Client cried as well, cursing the process each time he had to stop and gather his courage. Client heard that he has made good progress from two weeks ago when he and his mother laughed throughout their feelings letters. said she had forgotten her letter but did share that she thought leaving him would make life better, but admitted that she had been lonely and distraught. She was encouraged to seek out [facility] meetings, though they [place] in [place] very isolated area. Hopefully, she will beable to hit some meetings of her own when he comes for his aftercare. She admitted that she has smoked pot in the past.
--- NOTE | 2016-11-04 22:18 | NUR ---
DISCHARGE NOTE Client left unit at 8:45 with daughter and with all of his belongings. Discharge instructions were explained and client was given a copy.
--- NOTE | 2016-12-29 17:18 | DS ---
ADMIT: 10/07/2016 RM/LOC: [facility] MR#: [id number] [facility] [address] [place] [id number] JEFFERY CARTER [address] [place] [address] General Discharge Summary SEX: M AGE: 26 : 1990 ADMISSION DATE: 10/07/2016 DISCHARGE DATE: 11/04/2016 INDICATION FOR HOSPITALIZATION: Jeffery is a 26-year-old, single, white male, admitted to residential level treatment at [facility] after a second DUI. He went to [facility] in August 2016 for detox prior to referral to residential level treatment in September 2016. Jeffery's drug of choice on admission is alcohol. Please see his admission H and P for further details. HOSPITAL COURSE: On admission, Jeffery was admitted to our residential level treatment [facility]. He was started on multivitamin and thiamine given his history of alcohol abuse and dependency. During treatment, his primary care counselor assigned was Penny Strauss. During treatment, he underwent individual and group therapy sessions on drug and alcohol abuse dependency. Foster mother and significant other were involved in the family portion of his treatment program. He was overall accepting of his substance abuse problems. He completed steps 1 through 3 of Alcoholics Anonymous. No significant incidences were noted during treatment. Relapse triggers were identified. Relapse prevention strategy was outlined. Reason for discharge was completion of residential level treatment goals. Aftercare recommendations include followup counseling with Buddy through [facility] with sponsor assignment, outpatient counseling, and active AA and NA meeting involvement. LABORATORY AND X-RAY DATA DURING HOSPITALIZATION: None. DISCHARGE MEDICATIONS: Medications at the time of discharge include: 1. Multivitamin one daily. 2. Thiamine 100 mg daily. FINAL DISCHARGE DIAGNOSES: Include: 1. Alcohol use disorder, severe. 2. Tobacco use disorder. PROCEDURES: Include drug and alcohol abuse dependency treatment and counseling. Please see his hospital record for further details. Ricardo Mcneal MD/ cody JOB #: [id number] CC: Ricardo Mcneal MD, Attending Physician FAMILY PHYSICIAN, Family Physician
== END 2016-11-04 20:45 | disposition home or self-care (01) | DRG 895 ==
LOC: ADTC 10:48
PROVIDERS: ADMIT Family Medicine
PROC: HZ63ZZZ Family Counseling for Substance Abuse Treatment (ICD-10-PCS; principal; 2016-10-07)
PROC: HZ34ZZZ Individual Counseling for Substance Abuse Treatment, Interpersonal (ICD-10-PCS; principal; 2016-10-07)
PROC: HZ43ZZZ Group Counseling for Substance Abuse Treatment, 12-Step (ICD-10-PCS; principal; 2016-10-07)
DX: F10.20 Alcohol dependence, uncomplicated (principal); F17.210 Nicotine dependence, cigarettes, uncomplicated; F17.220 Nicotine dependence, chewing tobacco, uncomplicated; Z65.3 Problems related to other legal circumstances